=== PATIENT | male | born 1985 | race Two or more races ===

== ENCOUNTER 2021-01-12 10:55 | Emergency (ER) | payer OTHER ==
--- NOTE | 2021-01-12 11:33 | EDM.PDOC ---
ED HPI GENERAL MEDICAL PROBLEM - General Chief Complaint: Respiratory Problem Stated Complaint: COUGHING UP BLOOD Time Seen by Provider: 01/12/21 11:00 Source of Information: Reports: Patient History Limitations: Reports: No Limitations - History of Present Illness INITIAL COMMENTS - FREE TEXT/NARRATIVE: Is a 35-year-old male presents today for cough. Patient dates he was tested positive for Covid last week and since that time he had increased coughing with sputum production. Patient also saw some spots of blood in the coughing. Patient denies any profuse bleeding difficulty swallowing nausea vomiting fevers or chills. - Related Data Allergies Allergy/AdvReac Type Severity Reaction Status Date / Time No Known Allergies Allergy Verified 01/12/21 11:06 Home Meds: Home Meds . [No Known Home Meds] 01/12/21 [History] Past Medical History - Past Health History Medical/Surgical History: Denies Medical/Surgical History - Infectious Disease History Infectious Disease History: Reports: None Social & Family History - Tobacco Use Tobacco Use Status *Q: Never Tobacco User - Recreational Drug Use Recreational Drug Use: No ED ROS GENERAL - Review of Systems Review Of Systems: See Below Constitutional: Reports: No Symptoms HEENT: Reports: No Symptoms Respiratory: Reports: Sputum Cardiovascular: Reports: No Symptoms Endocrine: Reports: No Symptoms GI/Abdominal: Reports: No Symptoms : Reports: No Symptoms Musculoskeletal: Reports: No Symptoms Skin: Reports: No Symptoms Neurological: Reports: No Symptoms Psychiatric: Reports: No Symptoms Hematologic/Lymphatic: Reports: No Symptoms Immunologic: Reports: No Symptoms ED EXAM, GENERAL - Physical Exam Exam: See Below Exam Limited By: No Limitations General Appearance: Alert, WD/WN, No Apparent Distress Eye Exam: Bilateral Eye: EOMI, PERRL Respiratory/Chest: No Respiratory Distress, Lungs Clear, Normal Breath Sounds Cardiovascular: Normal Peripheral Pulses, Regular Rate, Rhythm GI/Abdominal: Normal Bowel Sounds, Soft, Non-Tender Back Exam: Normal Inspection Neurological: Alert, Oriented, Normal Cognition, Normal Gait Course - Vital Signs Last Recorded V/S: Last Vital Signs Temp 97.0 F 01/12/21 11:07 Pulse 71 01/12/21 11:07 Resp 17 01/12/21 11:07 BP 136/72 01/12/21 11:07 Pulse Ox 98 01/12/21 11:07 - Re-Assessments/Exams Free Text/Narrative Re-Assessment/Exam: 01/12/21 12:52 Patient x-ray reviewed past count also possibly likely is Covid. Exam patient is tolerating secretions well perfused bleeding will be discharged home. Departure - Departure Time of Disposition: 12:53 Disposition: Home, Self-Care 01 Condition: Good Clinical Impression: Hemoptysis - Discharge Information *PRESCRIPTION DRUG MONITORING PROGRAM REVIEWED*: Not Applicable *COPY OF PRESCRIPTION DRUG MONITORING REPORT IN PATIENT KWAN: Not Applicable Instructions: Hemoptysis, [id number] Referrals: PCP,None [Primary Care Provider] - Forms: ED Department Discharge Additional Instructions: The following information is given to patients seen in the emergency department who are being discharged to home. This information is to outline your options for follow-up care. We provide all patients seen in our emergency department with a follow-up referral. The need for follow-up, as well as the timing and circumstances, are variable depending upon the specifics of your emergency department visit. If you don't have a primary care physician on staff, we will provide you with a referral. We always advise you to contact your personal physician following an emergency department visit to inform them of the circumstance of the visit and for follow-up with them and/or the need for any referrals to a consulting specialist. The emergency department will also refer you to a specialist when appropriate. This referral assures that you have the opportunity for follow-up care with a specialist. All of these measure are taken in an effort to provide you with optimal care, which includes your follow-up. Under all circumstances we always encourage you to contact your private physician who remains a resource for coordinating your care. When calling for follow-up care, please make the office aware that this follow-up is from your recent emergency room visit. If for any reason you are refused follow-up, please contact the [facility] Emergency Department at and asked to speak to the emergency department charge nurse. Please follow up with your primary care physician. If you do not have a primary care physician, see below: [facility] [address] [place] [id number] [facility] [address] [place] [id number] You were seen for increased cough and coughing up blood. This is likely related to your pattern of coughing making small tears in your respiratory tract. Do not profusely bleeding. If you go home and have difficulty breathing swallowing or profuse blood with coughing please return to the ED otherwise follow-up with primary care physician. Sepsis Event Note (ED) - Evaluation Sepsis Screening Result: No Definite Risk - Focused Exam Vital Signs: Vital Signs Temp Pulse Resp BP Pulse Ox 01/12/21 11:07 97.0 F 71 17 136/72 98 - Assessment/Plan Plan: Patient is a 35-year-old male who presents today for cough with some spots of blood in it. Patient was well has not had any profuse bleeding. Will obtain x- ray and reassess patient.
--- NOTE | 2021-01-12 12:45 | CR ---
Indication: Cough, previous yost virus Comparison: None available. Technique: Single AP view chest Findings: There is hyperinflation and chronic interstitial change. There are scattered ground-glass and airspace opacities within the bilateral hemithoraces likely representing multifocal infiltrates and/or pulmonary edema. The cardiomediastinal silhouette is within normal limits. The bony thorax is grossly intact. Impression: Scattered interstitial and ground-glass opacities within the bilateral hemithoraces commensurate with multifocal infiltrates. Dictated by Guille Sandra MD @ 01/12/2021 12:43:[address] Guille Sandra @ Jan 12 2021 12:43PM
== END 2021-01-12 13:06 | disposition home or self-care (01) ==
LOC: MW.ED 10:55
DX: R04.2 Hemoptysis (principal); Z86.16 Personal history of COVID-19
CPT/HCPCS: 71045; 71045-26; 99283-25